=== PATIENT | female | born 1980 ===

== ENCOUNTER 2018-11-08 20:15 | Emergency (ER) | payer BC ==
--- NOTE | 2018-11-08 21:22 | EDM.PDOC ---
<Aline Mcgowan - Last Filed: 11/08/18 23:58> ED HPI GENERAL MEDICAL PROBLEM - General Chief Complaint: Abdominal Pain Stated Complaint: abdominal pain Time Seen by Provider: 11/08/18 20:52 Source of Information: Reports: Patient History Limitations: Reports: No Limitations - History of Present Illness INITIAL COMMENTS - FREE TEXT/NARRATIVE: 38 yo F comes in today for RLQ pain that started yesterday afternoon. She states it was a random onset, no recent changes in food, and she doesn't "feel sick". She states the pain has been lingering. She has never had anything like this before. No previous abdominal surgeries. No h/o hernia. LNMP October 14. No pain with intercourse, no foul odors or vaginal discharge. Pain is worse with palpation, movement, going over speed bumps in the car, and when bearing down she feels a "pelvic pressure" and a sharp pain "like a stabbing knife". She is able to eat and drink and has had a BM today. She has not tried medication at home for the pain, but heat does help. No other concerns at this time. Her PCP is Dr. Viktoria Sky at [facility]. Last time she saw her direct casting operator, Dr. Lovell, was 2 years ago. Lower Abdomen Pain Score (Numeric/FACES): 4 - Related Data Allergies Allergy/AdvReac Type Severity Reaction Status Date / Time No Known Allergies Allergy Verified 11/08/18 20:24 Home Meds: Home Meds . [No Known Home Meds] 11/08/18 [History] Past Medical History Musculoskeletal History: Reports: Other (See Below) Other Musculoskeletal History: cyst removed from wrist Social & Family History - Tobacco Use Smoking Status *Q: Never Smoker - Caffeine Use Caffeine Use: Reports: Coffee - Recreational Drug Use Recreational Drug Use: No ED ROS GENERAL - Review of Systems Review Of Systems: See Below Constitutional: Reports: No Symptoms. Denies: Fever, Chills, Decreased Appetite HEENT: Reports: No Symptoms Respiratory: Reports: No Symptoms. Denies: Shortness of Breath, Cough Cardiovascular: Reports: No Symptoms GI/Abdominal: Reports: Abdominal Pain (RLQ). Denies: Constipation, Diarrhea, Decreased Appetite, Nausea : Reports: No Symptoms. Denies: Dysuria, Flank Pain, Hematuria Skin: Reports: No Symptoms Neurological: Reports: No Symptoms Psychiatric: Reports: No Symptoms ED EXAM, GI/ABD - Physical Exam Exam: See Below Exam Limited By: No Limitations General Appearance: Alert, WD/WN, No Apparent Distress Eyes: Bilateral: Normal Appearance, EOMI Respiratory/Chest: No Respiratory Distress, Lungs Clear, Normal Breath Sounds, No Accessory Muscle Use, Chest Non-Tender Cardiovascular: Normal Peripheral Pulses, Regular Rate, Rhythm, No Edema, No Gallop, No JVD, No Murmur, No Rub GI/Abdominal Exam: Normal Bowel Sounds, Soft, No Organomegaly, No Distention, No Abnormal Bruit, No Mass, Pelvis Stable, Rebound, Tender (RLQ, McBurney's pt) . No: Distended Back Exam: Normal Inspection, Full Range of Motion, NT Psychiatric: Normal Affect, Normal Mood Skin Exam: Warm, Dry, Intact, Normal Color, No Rash Course - Vital Signs Last Recorded V/S: Last Vital Signs Temp 36.6 C 11/08/18 20:27 Pulse 57 L 11/08/18 20:27 Resp 20 11/08/18 20:27 BP 119/79 11/08/18 20:27 Pulse Ox 100 11/08/18 20:27 Orthostatic Blood Pressure [] 112/85 Orthostatic Blood Pressure [] 133/83 Orthostatic Blood Pressure [] 113/76 - Orders/Labs/Meds Orders: Active Orders 24 hr Category Date Time Status Orthostatic Vital Signs [RC] STAT Care 11/09/18 00:43 Active Abdomen w Cont [CT] Stat Exams 11/08/18 21:18 Taken Labs: Laboratory Tests 11/08/18 11/08/18 11/08/18 Range/Units 21:49 22:03 22:03 WBC 3.92 L (3.98-10.04) K/mm3 RBC 4.84 (3.98-5.22) M/mm3 Hgb 13.5 (11.2-15.7) gm/L Hct 40.6 (34.1-44.9) % MCV 83.9 (79.4-94.8) fl MCH 27.9 (25.6-32.2) pg MCHC 33.3 (32.2-35.5) g/dl RDW Std Deviation 40.3 (36.4-46.3) fL Plt Count 148 L (182-369) K/mm3 MPV 11.6 (9.4-12.3) fl Neut % (Auto) 46.4 (34.0-71.1) % Lymph % (Auto) 41.3 (19.3-51.7) % [place] % (Auto) 8.9 (4.7-12.5) % Eos % (Auto) 2.6 (0.7-5.8) Baso % (Auto) 0.5 (0.1-1.2) % Neut # (Auto) 1.82 (1.56-6.13) K/mm3 Lymph # (Auto) 1.62 (1.18-3.74) K/mm3 [place] # (Auto) 0.35 (0.24-0.36) K/mm3 Eos # (Auto) 0.10 (0.04-0.36) K/mm3 Baso # (Auto) 0.02 (0.01-0.08) K/mm3 Sodium 143 (136-145) mEq/L Potassium 3.7 (3.5-5.1) mEq/L Chloride 109 H (98-107) mEq/L Carbon Dioxide 27 (21-32) mEq/L Anion Gap 10.7 (5-15) BUN 18 (7-18) mg/dL Creatinine 0.8 (0.55-1.02) mg/dL Est Cr Clr Drug Dosing 80.42 mL/min Estimated GFR (MDRD) > 60 (>60) mL/min BUN/Creatinine Ratio 22.5 H (14-18) Glucose 92 (74-106) mg/dL Calcium 9.2 (8.5-10.1) mg/dL Total Bilirubin 0.5 (0.2-1.0) mg/dL AST 24 (15-37) U/L ALT 41 (14-59) U/L Alkaline Phosphatase 63 (46-116) U/L C-Reactive Protein < 0.2 (<1.0) mg/dL Total Protein 7.2 (6.4-8.2) g/dl Albumin 4.0 (3.4-5.0) g/dl Globulin 3.2 gm/dL Albumin/Globulin Ratio 1.3 (1-2) Urine HCG, Qual Negative (NEGATIVE) Meds: Medications Discontinued Medications Generic Name Dose Route Start Last Admin Trade Name Freq PRN Reason Stop Dose Admin Iopamidol 100 ml 11/08/18 23:06 11/08/18 23:15 Isovue-370 (76%) IV 11/08/18 23:07 100 ml ONETIME ONE Administration - Re-Assessments/Exams Free Text/Narrative Re-Assessment/Exam: 11/08/18 22:00 Ordered CBC, CMP, CRP 11/08/18 21:18 CBC, CMP, CRP WNL CT abdomen ordered to r/o appendicitis as she is having RLQ pain and rebound tenderness 11/08/18 23:59 Change of shift. Will be transferring care to Dr. Jeffries at this time. Still awaiting CT report, then she can likely go home if negative as the rest of her workup has been benign. Departure - Departure Disposition: Home, Self-Care 01 Clinical Impression: Ruptured ovarian cyst, Hemoperitoneum - Discharge Information Referrals: John Lovell MD [Primary Care Provider] - Forms: ED Department Discharge Additional Instructions: You were seen in the emergency room for lower right abdominal pain that began yesterday afternoon. Workup in the ER included blood work, urine test, and a CT scan of your abdomen and pelvis with oral and IV contrast. Your blood work was unremarkable, and your urine test was negative, however, the CT scan of your abdomen and pelvis found that you have a ruptured ovarian cyst with blood in your pelvis. Your case was discussed with the Percussion Tuner Dr. Neeru Moore. Because you are hemodynamically stable, your blood work is good, and you are minimally tender on examination, you do not need to go to the operating room. You may safely go home. Follow-up with your Percussion Tuner, Dr. Lovell, this coming week. If your pain increases, or if you become lightheaded when you stand, please return to the ER for reevaluation. - My Orders Last 24 Hours: My Active Orders 11/09/18 00:43 Orthostatic Vital Signs [RC] STAT - Assessment/Plan Last 24 Hours: My Active Orders 11/09/18 00:43 Orthostatic Vital Signs [RC] STAT <Rome Jeffries - Last Filed: 11/09/18 01:03> Course - Re-Assessments/Exams Free Text/Narrative Re-Assessment/Exam: 11/09/18 00:42 CT of the abdomen and pelvis with oral and IV contrast is read by [facility] as "Findings are consistent with ruptured ovarian cyst with moderate hemoperitoneum." 11/09/18 00:54 I examined the patient. She is minimally tender, even to the right lower quadrant and right pelvis. She denies feeling lightheaded when upright. Her last oral solid food was around 18:00. The patient is not orthostatic. 11/09/18 00:[address] Neeru Moore at 00:54. Based on the above information, Dr. Moore does not feel that the patient needs to go to the operating room, and may be safely discharged home, however, if the patient develops increased pain or lightheadedness, she should return to the ED for reevaluation. Departure - Departure Time of Disposition: 01:00 Condition: Good - Discharge Information *PRESCRIPTION DRUG MONITORING PROGRAM REVIEWED*: Not Applicable *COPY OF PRESCRIPTION DRUG MONITORING REPORT IN PATIENT CHRISTIAN: Not Applicable - My Orders Last 24 Hours: My Active Orders 11/09/18 00:43 Orthostatic Vital Signs [RC] STAT - Assessment/Plan Last 24 Hours: My Active Orders 11/09/18 00:43 Orthostatic Vital Signs [RC] STAT
[2018-11-08] MEDS ORDERED: Iopamidol 755 Mg/ML 200 ML Bottle IV ONE (23:06)
--- NOTE | 2018-11-09 13:07 | CT ---
CT abdomen and pelvis Technique: Multiple axial sections were obtained from above the dome of the diaphragm inferiorly through the pubic symphysis. Intravenous and oral contrast was utilized. Delayed images were obtained through the bladder. Comparison: No prior abdominal imaging is available. Findings: Liver shows no focal parenchymal abnormality. Visualized lung bases show nothing acute. Spleen appears within normal limits. Adrenal glands show no nodule. Pancreas is within normal limits. Kidneys show symmetric contrast enhancement without hydronephrosis or mass. Gallbladder contains no calcified gallstones. Aorta shows no aneurysm. No retroperitoneal adenopathy is seen. No mesenteric abnormalities are seen. Fluid is seen within the pelvis which has Hounsfield unit measurements of blood. There is a hemorrhagic appearing collapsing cyst within the left ovary measuring approximately 3.2 cm. Delayed images show contrast within the bladder. Impression: 1. Hemorrhagic cyst within the left ovary. Blood within the pelvis. Findings most likely due to leaking hemorrhagic cyst causing hemoperitoneum. Follow-up recommended to make sure the f;inding of hemoperitoneum is stable. Follow-up by hemoglobin measurements could be consider to confirm stability. 2. No additional abnormality is seen. Diagnostic code #5 I agree with preliminary report from [facility], finalized on 11/09/18, 1:18 AM Central Time
== END 2018-11-09 01:13 | disposition home or self-care (01) ==
LOC: JD.ED 20:15
DX: N83.202 Unspecified ovarian cyst, left side (principal); K66.1 Hemoperitoneum
CPT/HCPCS: 36415; 74177; 80053; 81025; 85025; 86140; 99284; Q9967; 74160; 74160-26